=== PATIENT | male | born 1970 | race Caucasian/White ===

== ENCOUNTER → 2019-01-11 | Outpatient (REF) | payer OTHER ==
[2019-01-11 16:24] LABS: INFLUENZA A AMPLIFICATION NEGATIVE (NEGATIVE); INFLUENZA B AMPLIFICATION NEGATIVE (NEGATIVE)
== END ==
LOC: M LAB REF 15:23
PROVIDERS: ATTEND Physician Assistant
DX: J11.1 Influenza due to unidentified influenza virus with other respiratory manifestations (principal)

== ENCOUNTER 2020-07-21 21:05 | Emergency (ER) | payer BC, OTHER ==
[~2020-07-21] VITALS: Ht 180.3 cm; Wt 97.7 kg
[2020-07-21] MEDS ORDERED: ALLO100T PO (21:33)
[2020-07-22] MEDS ORDERED: cefTRIAXone SOD 1 GM in D5W MINI-BAG PLUS 50 ML IV ONE ×2
[2020-07-22] MEDS ORDERED: KETOROLAC 30 MG/ML 1ML VIAL IV ONE
[2020-07-22] MEDS ORDERED: NS 1,000 ML IV ONE
[2020-07-22 00:31] LABS: BASO % 0.3 % (0.0-1.0); EOS # 0.1 10^3/uL (0.0-0.5); HEMATOCRIT 43.4 % (42.0-52.0); HEMOGLOBIN 15.4 g/dl (13.5-17.5); LYMPH # 2.9 10^3/uL (1.5-5.0); LYMPH % 25.5 % (24.0-44.0); MEAN CORPUSCULAR HEMOGLOBIN 31.9 pg (27.0-33.0); MEAN CORPUSCULAR HGB CONC 35.5 g/dl (32.0-36.5); MEAN CORPUSCULAR VOLUME 89.9 fl (80.0-96.0); MONO # 0.9 10^3/uL (0.0-0.8); MONO % 7.7 % (0.0-5.0); NEUTROPHILS # 7.5 10^3/uL (1.5-8.5); NEUTROPHILS % 65.2 % (36.0-66.0); PLATELET COUNT, AUTOMATED 192 10^3/uL (150-450); RED BLOOD COUNT 4.83 10^6/uL (4.30-6.10); WHITE BLOOD COUNT 11.5 10^3/uL (4.0-10.0)
[2020-07-22 01:20] LABS: ERYTHROCYTE SEDIMENTATION RATE 11 mm/hr (0-15)
[2020-07-22] MEDS ORDERED: KEFL500C17 PO (01:26)
[2020-07-22 01:44] VITALS: BP 132/88
--- NOTE | 2020-08-20 07:58 | REP ---
RIGHT FIRST TOE CLINICAL: Pain and swelling. Rule out foreign body. TECHNIQUE: AP, lateral, and bilateral oblique views of the right first toe. FINDINGS: The osseous structures are intact and there is no evidence for acute fracture or dislocation and no periosteal reaction to suggest osteomyelitis. Overlying soft tissue swelling is appreciated without subcutaneous emphysema or foreign body. IMPRESSION: Soft tissue swelling. No subcutaneous emphysema or foreign body. [facility]
== END 2020-07-22 01:45 | disposition home or self-care (01) ==
LOC: M ED 21:05
DX: L03.115 Cellulitis of right lower limb (principal); L03.125 Acute lymphangitis of right lower limb; M10.9 Gout, unspecified
CPT/HCPCS: 73660; 80047; 83605; 85025; 85652; 86140; 96365; 96375; 99284; J0696; J1885

== ENCOUNTER 2024-10-18 00:57 | Emergency (ER) | payer BC, OTHER ==
[~2024-10-18] VITALS: Ht 180.3 cm; Wt 93.2 kg
[~2024-10-18 00:57] MED LIST: ALLO100T PO; KEFL500C17 PO
[2024-10-18] MEDS ORDERED: VALA1TAB5 PO (07:03)
[2024-10-18 07:11] VITALS: BP 157/91; TEMP 98.2; O2SAT 96
[2024-10-18] MEDS ORDERED: NEUR100C PO (07:16)
== END 2024-10-18 07:26 | disposition home or self-care (01) ==
LOC: M ED 00:57
DX: B02.9 Zoster without complications (principal); F10.10 Alcohol abuse, uncomplicated; Z79.2 Long term (current) use of antibiotics; Z79.899 Other long term (current) drug therapy

== ENCOUNTER → 2025-11-05 | Outpatient (REF) | payer BC, OTHER ==
[~2025-11-05] MED LIST changes: +NEUR100C PO; +VALA1TAB5 PO
== END ==
LOC: M LAB REF 12:33
PROVIDERS: ATTEND Physician Assistant Medical
DX: J02.9 Acute pharyngitis, unspecified (principal)